=== PATIENT | female | born 1960 | race Caucasian/White ===

== ENCOUNTER 2016-10-10 09:23 | Emergency (ER) | payer BC ==
[2016-10-10] MEDS ORDERED: Sodium Chloride 0.9% 10 ML Syringe FLUSH PRN (09:41)
[2016-10-10] MEDS ORDERED: Sodium Chloride 0.9% 1,000 ML IV ONE (09:41)
--- NOTE | 2016-10-10 10:24 | CR ---
EXAMINATION: Portable chest radiograph. HISTORY: Chest eval. FINDINGS: The trachea is midline. The cardiomediastinal silhouette is within normal limits. No pulmonary infil trates, effusions or pneumothorax. Osseous structures appear unremarkable. IMPRESSION: No acute cardiopulmonary process.
[2016-10-10 10:30] LABS: CHLORIDE,CL 108 mmol/L (98-110); SODIUM,NA 139 mmol/L (136-146)
[2016-10-10] MEDS ORDERED: Ibuprofen 800 MG Tab PO ONE (11:17)
--- NOTE | 2016-10-10 12:07 | CT ---
EXAMINATION: Non contrast CT head. Coronal and sagittal reformats. HISTORY: cardio eval FINDINGS: No evidence of intra or extra axial hemorrhage, mass, midline shift, hydrocephalus or edema. No hypoattenuation changes in the major vascular territories to suggest acute infarct. No abnormal intracranial calcifications are detected. No evidence of substantial vascular calcifica tions. Paranasal sinuses and mastoid air cells are well aerated without substantial findings. The orbits a nd globes are symmetric. There is prominent rightward deviation of the nasal septum. Marcela bullosa are noted. Pituitary fossa appears unremarkable. Calvarium is intact. No evidence of skull fracture. IMPRESSION: No acute intracranial findings.
--- NOTE | 2016-10-10 12:17 | CR ---
EXAMINATION: Lumbar spine HISTORY: Fall COMPARISON: None TECHNIQUE: AP and lateral views FINDINGS: There is a trace anterolisthesis of L4 on L5. The vertebral body heights appear well maint ained. No fracture or dislocation. Minimal marginal osteophytes are noted. Facet hypertrophy is note d within the lower lumbar spine. The SI joints are symmetric. Bone mineralization is normal. Essure devices are noted. IMPRESSION: Mild degenerative changes without acute findings.
[2016-10-10] MEDS ORDERED: Meclizine 25 MG Tab PO ONE (12:32)
--- NOTE | 2016-10-10 13:27 | EDM.PDOC ---
ED HPI NEURO - General Chief Complaint: Neurological Problem Stated Complaint: SICK Time Seen by Provider: 10/10/16 09:47 Source of Information: Reports: Patient History Limitations: Reports: No limitations - History of Present Illness INITIAL COMMENTS - FREE TEXT/NARRATIVE: HISTORY AND PHYSICAL: History of present illness: [56-year-old female with no history of vertigo now complaining of dizziness with room spinning. Patient awoke this morning with the symptoms. It's worse with head movement. She has nausea associated with it. No headache or stiff neck. No fevers chills sweats or shaking chills. Patient does not feel lightheaded or presyncopal. She has no history of arrhythmia or cardiac problems. The gums are improved the patient states still] Review of systems: As per history of present illness and below otherwise all systems reviewed and negative. Past medical history: As per history of present illness and as reviewed below otherwise noncontributory. Surgical history: As per history of present illness and as reviewed below otherwise noncontributory. Social history: No reported history of drug or alcohol abuse. Family history: As per history of present illness and as reviewed below otherwise noncontributory. Physical exam: Well-appearing patient is making an effort to keep her head still because moving precipitates dizziness and room spinning. Alert no acute distress communicative and appropriate nonfocal neurologically HEENT: Atraumatic, normocephalic, pupils reactive, negative for conjunctival pallor or scleral icterus, mucous membranes moist, throat clear, neck supple, nontender, trachea midline. Lungs: Clear to auscultation, breath sounds equal bilaterally, chest nontender. Heart: S1S2, regular, negative for clicks, rubs, or JVD. Abdomen: Soft, nondistended, nontender. Negative for masses or hepatosplenomegaly. Negative for costovertebral tenderness. Pelvis: Stable nontender. Genitourinary: Deferred. Rectal: Deferred. Extremities: Atraumatic, negative for cords or calf pain. Neurovascular unremarkable. Neuro: Awake, alert, oriented. Cranial nerves II through XII unremarkable. Cerebellum unremarkable. Motor and sensory unremarkable throughout. Exam nonfocal. Diagnostics: [] Therapeutics: [] Impression: [] Plan: [Signs and symptoms consistent with peripheral vertigo. Extensive workup unremarkable. Patient improved after treatment. No further workup or treatment indicated at this time. Patient agrees with outpatient followup. Rx meclizine. Strict return precautions given] Definitive disposition and diagnosis as appropriate pending reevaluation and review of above. - Related Data Allergies/ADRs: Allergies Allergy/AdvReac Type Severity Reaction Status Date / Time Penicillins Allergy Hives Verified 10/10/16 09:34 Home Meds: Home Meds Atenolol [Tenormin] 25 mg PO BRK 03/10/14 [History] Escitalopram Oxalate 20 mg PO DAILY 03/10/14 [History] ZOLMitriptan [Zolmitriptan] 1 tab SL ASDIRECTED PRN 03/10/14 [History] Meclizine [Antivert] 25 mg PO Q6H PRN #24 tablet 10/10/16 [Rx] Past Medical History Other Cardiovascular History: blod clots Respiratory History: Reports: PE Other Genitourinary History: kidney infections Psychiatric History: Reports: Anxiety, Depression - Infectious Disease History Infectious Disease History: Reports: Chicken pox, Measles, Mumps Social & Family History - Family History Family Medical History: Noncontributory - Tobacco Use Smoking Status *Q: Never Smoker - Caffeine Use Caffeine Use: Reports: None - Alcohol Use Days Per Week of Alcohol Use: 0 Number of Drinks Per Day: 1 Total Drinks Per Week: 0 - Recreational Drug Use Recreational Drug Use: No Drug Use in Last 12 Months: No ED ROS GENERAL - Review of Systems Review Of Systems: See Below (History of present illness) ED EXAM, NEURO - Physical Exam Exam: See Below (History of present illness) Course - Vital Signs Last Recorded V/S: Last Vital Signs Temp 36.4 C 10/10/16 09:31 Pulse 55 L 10/10/16 13:42 Resp 18 10/10/16 13:42 BP 134/74 10/10/16 13:42 Pulse Ox 95 10/10/16 13:42 - Orders/Labs/Meds Labs: Laboratory Tests 10/10/16 10/10/16 10/10/16 Range/Units 09:59 09:59 09:59 WBC 5.87 (4.0-11.0) K/uL RBC 4.73 (4.30-5.90) M/uL Hgb 14.7 (12.0-16.0) g/dL Hct 44.0 (36.0-46.0) % MCV 93.0 (80.0-98.0) fL MCH 31.1 (27.0-32.0) pg MCHC 33.4 (31.0-37.0) g/dL RDW Std Deviation 45.2 (28.0-62.0) fl RDW Coeff of Karen 13 (11.0-15.0) % Plt Count 220 (150-400) K/uL MPV 9.40 (7.40-12.00) fL Neut % (Auto) 49.5 (48.0-80.0) % Lymph % (Auto) 40.5 H (16.0-40.0) % Pershing % (Auto) 7.5 (0.0-15.0) % Eos % (Auto) 2.0 (0.0-7.0) % Baso % (Auto) 0.5 (0.0-1.5) % Neut # (Auto) 2.9 (1.4-5.7) K/uL Lymph # (Auto) 2.4 (0.6-2.4) K/uL Pershing # (Auto) 0.4 (0.0-0.8) K/uL Eos # (Auto) 0.1 (0.0-0.7) K/uL Baso # (Auto) 0.0 (0.0-0.1) K/uL Nucleated RBC % 0.0 /100WBC Nucleated RBCs # 0 K/uL Sodium 139 (136-146) mmol/L Potassium 4.4 (3.5-5.1) mmol/L Chloride 108 (98-110) mmol/L Carbon Dioxide 18 L (21-31) mmol/L BUN 16 (6.0-23.0) mg/dL Creatinine 0.8 (0.6-1.5) mg/dL Est Cr Clr Drug Dosing 69.42 mL/min Estimated GFR (MDRD) > 60.0 ml/min Glucose 119 H (60-110) mg/dL Calcium 9.1 (8.8-10.8) mg/dL Total Bilirubin 0.5 (0.1-1.5) mg/dL AST 27 (5-40) IU/L ALT 25 (8-54) IU/L Alkaline Phosphatase 43 (40-150) Troponin I < 0.10 (0.0-0.29) NG/ML Total Protein 7.0 (6.0-8.0) g/dL Albumin 3.8 (3.5-5.0) g/dL Globulin 3.2 (2.0-3.5) g/dL Albumin/Globulin Ratio 1.2 L (1.3-2.8) Free T4 0.75 (0.7-1.48) ng/dL TSH 3rd Generation 0.60 (0.47-5.0) uIU/mL Urine Color Urine Appearance Urine pH (5.0-8.0) Ur Specific [place] (1.001-1.035) Urine Protein (NEGATIVE) mg/dL Urine Glucose (UA) (NEGATIVE) mg/dL Urine Ketones (NEGATIVE) mg/dL Urine Occult Blood (NEGATIVE) Urine Nitrite (NEGATIVE) Urine Bilirubin (NEGATIVE) Urine Urobilinogen (<2.0) EU/dL Ur Leukocyte Esterase (NEGATIVE) Urine RBC (0-2/HPF) Urine WBC (0-5/HPF) Ur Epithelial Cells (NONE-FEW) Amorphous Sediment (NEGATIVE) Urine Bacteria (NEGATIVE) Urine Mucus (NONE-MOD) 10/10/16 Range/Units 11:50 WBC (4.0-11.0) K/uL RBC (4.30-5.90) M/uL Hgb (12.0-16.0) g/dL Hct (36.0-46.0) % MCV (80.0-98.0) fL MCH (27.0-32.0) pg MCHC (31.0-37.0) g/dL RDW Std Deviation (28.0-62.0) fl RDW Coeff of Karen (11.0-15.0) % Plt Count (150-400) K/uL MPV (7.40-12.00) fL Neut % (Auto) (48.0-80.0) % Lymph % (Auto) (16.0-40.0) % Pershing % (Auto) (0.0-15.0) % Eos % (Auto) (0.0-7.0) % Baso % (Auto) (0.0-1.5) % Neut # (Auto) (1.4-5.7) K/uL Lymph # (Auto) (0.6-2.4) K/uL Pershing # (Auto) (0.0-0.8) K/uL Eos # (Auto) (0.0-0.7) K/uL Baso # (Auto) (0.0-0.1) K/uL Nucleated RBC % /100WBC Nucleated RBCs # K/uL Sodium (136-146) mmol/L Potassium (3.5-5.1) mmol/L Chloride (98-110) mmol/L Carbon Dioxide (21-31) mmol/L BUN (6.0-23.0) mg/dL Creatinine (0.6-1.5) mg/dL Est Cr Clr Drug Dosing mL/min Estimated GFR (MDRD) ml/min Glucose (60-110) mg/dL Calcium (8.8-10.8) mg/dL Total Bilirubin (0.1-1.5) mg/dL AST (5-40) IU/L ALT (8-54) IU/L Alkaline Phosphatase (40-150) Troponin I (0.0-0.29) NG/ML Total Protein (6.0-8.0) g/dL Albumin (3.5-5.0) g/dL Globulin (2.0-3.5) g/dL Albumin/Globulin Ratio (1.3-2.8) Free T4 (0.7-1.48) ng/dL TSH 3rd Generation (0.47-5.0) uIU/mL Urine Color YELLOW Urine Appearance CLEAR Urine pH 7.0 (5.0-8.0) Ur Specific [place] 1.010 (1.001-1.035) Urine Protein NEGATIVE (NEGATIVE) mg/dL Urine Glucose (UA) NEGATIVE (NEGATIVE) mg/dL Urine Ketones NEGATIVE (NEGATIVE) mg/dL Urine Occult Blood TRACE-LYSED (NEGATIVE) Urine Nitrite NEGATIVE (NEGATIVE) Urine Bilirubin NEGATIVE (NEGATIVE) Urine Urobilinogen 0.2 (<2.0) EU/dL Ur Leukocyte Esterase NEGATIVE (NEGATIVE) Urine RBC 0-1 (0-2/HPF) Urine WBC 0-2 (0-5/HPF) Ur Epithelial Cells RARE (NONE-FEW) Amorphous Sediment NOT SEEN (NEGATIVE) Urine Bacteria NOT SEEN (NEGATIVE) Urine Mucus NOT SEEN (NONE-MOD) Meds: Medications Discontinued Medications Generic Name Dose Route Start Last Admin Trade Name Freq PRN Reason Stop Dose Admin Sodium Chloride 1,000 mls @ 999 mls/hr 10/10/16 09:41 10/10/16 10:06 Normal Saline IV 10/10/16 10:41 999 mls/hr .Bolus ONE Administration Ibuprofen 800 mg 10/10/16 11:17 10/10/16 11:27 Motrin PO 10/10/16 11:18 800 mg ONETIME ONE Administration Meclizine HCl 25 mg 10/10/16 12:32 10/10/16 12:37 Antivert PO 10/10/16 12:33 25 mg ONETIME ONE Administration Sodium Chloride 10 ml 10/10/16 09:41 10/10/16 10:06 Saline Flush FLUSH 10 ml ASDIRECTED PRN Administration Keep Vein Open Departure - Departure Time of Disposition: 13:24 Disposition: Home, Self-Care 01 Condition: good Clinical Impression: Vertigo, Dizziness Prescriptions: Meclizine [Antivert] 25 mg PO Q6H PRN #24 tablet PRN Reason: Dizziness Instructions: Vertigo, [id number], Dizziness, [id number] Referrals: PCP,None [Primary Care Provider] - Forms: ED Department Discharge Additional Instructions: Your history and findings today are consistent with the diagnosis of vertigo we did an extensive workup to rule out any contributory findings which could make her dizziness worse. Your entire workup was unremarkable including labs, EKG, CT of the head. Rest drink plenty of fluids and use meclizine as prescribed as needed for dizziness. Ambulate with great care and assistance if necessary to optimize your personal safety. Avoid driving or putting herself in any position where dizziness would create a danger for you. Followup with your tomorrow for reevaluation further workup and treatment as needed. Return immediately for new severe or worsening symptoms
[2016-10-10 13:44] VITALS: BP 134/74
== END 2016-10-10 13:42 | disposition home or self-care (01) ==
LOC: MW.ED 09:23
DX: R42 Dizziness and giddiness (principal); F41.9 Anxiety disorder, unspecified; F32.9 Major depressive disorder, single episode, unspecified; Z79.899 Other long term (current) drug therapy; Z86.711 Personal history of pulmonary embolism; Z88.0 Allergy status to penicillin
CPT/HCPCS: 36415; 70450; 71010; 72100; 80053; 81001; 84439; 84443; 84484; 85025; 93005; 96360; 99285; A9270; J7040; 99283

== ENCOUNTER 2017-09-04 20:05 | Observation (INO) | payer BC ==
[2017-09-04] MEDS ORDERED: Aspirin 81 MG Tab.Chew PO ONE (20:10)
[2017-09-04] MEDS ORDERED: Nitroglycerin 0.4 MG Tab.SL SL PRN (20:17)
--- NOTE | 2017-09-04 20:21 | EDM.PDOC ---
<David Wyman - Last Filed: 09/04/17 21:19> ED HPI GENERAL MEDICAL PROBLEM - General Chief Complaint: General Stated Complaint: CHEST TIGHTNESS Time Seen by Provider: 09/04/17 20:19 - History of Present Illness INITIAL COMMENTS - FREE TEXT/NARRATIVE: Impression #1 viral syndrome #2 chest pain - Related Data Allergies Allergy/AdvReac Type Severity Reaction Status Date / Time Penicillins Allergy Hives Verified 09/04/17 20:12 Home Meds: Home Meds Aspirin 81 mg PO DAILY 09/04/17 [History] Atenolol 25 mg PO 09/04/17 [History] Escitalopram [Lexapro] 10 mg PO DAILY 09/04/17 [History] Course - Vital Signs Last Recorded V/S: Last Vital Signs Temp 96.0 F 09/04/17 20:14 Pulse 92 09/04/17 21:03 Resp 12 09/04/17 21:03 BP 123/70 09/04/17 21:03 Pulse Ox 96 09/04/17 21:03 - Orders/Labs/Meds Orders: Active Orders 24 hr Category Date Time Status Patient Status [ADT] Stat ADT 09/04/17 21:18 Active EKG Documentation Completion [RC] STAT Care 09/04/17 20:10 Active Chest 1V Frontal [CR] Stat Exams 09/04/17 20:10 Taken COMPREHENSIVE METABOLIC PN,CMP [CHEM] Stat Lab 09/04/17 20:21 Received INFLUENZA A+B AG SCREEN [RM] Stat Lab 09/04/17 20:34 Ordered TROPONIN I [CHEM] Stat Lab 09/04/17 20:21 Received Nitroglycerin [Nitrostat] Med 09/04/17 20:17 Active 0.4 mg SL Q5M PRN Medication Orders Nitroglycerin (Nitrostat) 0.4 mg SL Q5M PRN PRN Reason: Chest Pain Last Admin: 09/04/17 20:31 Dose: 0.4 mg Labs: Laboratory Tests 09/04/17 Range/Units 20:21 WBC 9.41 (4.0-11.0) K/uL RBC 4.87 (4.30-5.90) M/uL Hgb 15.4 (12.0-16.0) g/dL Hct 45.3 (36.0-46.0) % MCV 93.0 (80.0-98.0) fL MCH 31.6 (27.0-32.0) pg MCHC 34.0 (31.0-37.0) g/dL RDW Std Deviation 45.6 (28.0-62.0) fl RDW Coeff of Karen 13 (11.0-15.0) % Plt Count 240 (150-400) K/uL MPV 9.20 (7.40-12.00) fL Neut % (Auto) 68.2 (48.0-80.0) % Lymph % (Auto) 21.4 (16.0-40.0) % Cowley % (Auto) 8.3 (0.0-15.0) % Eos % (Auto) 1.9 (0.0-7.0) % Baso % (Auto) 0.2 (0.0-1.5) % Neut # (Auto) 6.4 H (1.4-5.7) K/uL Lymph # (Auto) 2.0 (0.6-2.4) K/uL Cowley # (Auto) 0.8 (0.0-0.8) K/uL Eos # (Auto) 0.2 (0.0-0.7) K/uL Baso # (Auto) 0.0 (0.0-0.1) K/uL Nucleated RBC % 0.0 /100WBC Nucleated RBCs # 0 K/uL Meds: Medications Generic Name Dose Route Start Last Admin Trade Name Freq PRN Reason Stop Dose Admin Nitroglycerin 0.4 mg 09/04/17 20:17 09/04/17 20:31 Nitrostat SL 0.4 mg Q5M PRN Administration Chest Pain Discontinued Medications Generic Name Dose Route Start Last Admin Trade Name Freq PRN Reason Stop Dose Admin Aspirin 324 mg 09/04/17 20:10 09/04/17 20:29 Aspirin PO 09/04/17 20:11 324 mg ONETIME ONE Administration Departure - Departure Disposition: Refer to Observation Clinical Impression: Chest pain, rule out acute myocardial infarction - Discharge Information Referrals: Sho Esteban MD [Primary Care Provider] - Forms: ED Department Discharge - My Orders Last 24 Hours: My Active Orders 09/04/17 20:10 EKG Documentation Completion [RC] STAT Chest 1V Frontal [CR] Stat 09/04/17 20:17 Nitroglycerin [Nitrostat] 0.4 mg SL Q5M PRN 09/04/17 20:21 COMPREHENSIVE METABOLIC PN,CMP [CHEM] Stat TROPONIN I [CHEM] Stat 09/04/17 20:34 INFLUENZA A+B AG SCREEN [RM] Stat - Assessment/Plan Last 24 Hours: My Active Orders 09/04/17 20:10 EKG Documentation Completion [RC] STAT Chest 1V Frontal [CR] Stat 09/04/17 20:17 Nitroglycerin [Nitrostat] 0.4 mg SL Q5M PRN 09/04/17 20:21 COMPREHENSIVE METABOLIC PN,CMP [CHEM] Stat TROPONIN I [CHEM] Stat 09/04/17 20:34 INFLUENZA A+B AG SCREEN [RM] Stat <Taina Umana E - Last Filed: 09/04/17 21:22> ED HPI GENERAL MEDICAL PROBLEM - General Source of Information: Reports: Patient History Limitations: Reports: No Limitations - History of Present Illness INITIAL COMMENTS - FREE TEXT/NARRATIVE: HISTORY AND PHYSICAL: History of present illness: Patient is a 57-year-old female who presents to the emergency room with complaints of chest heaviness. She states over the past several days she has had cough and cold like symptoms. Last night she started to have this "heaviness " in the left upper/mid sternal chest area. This pain does not radiate anywhere. Nothing makes it better or worse. She has no personal history of heart disease. No history of smoking. She denies any fever, chills, shortness of breath. She denies any abdominal pain, nausea, vomiting or diarrhea/ constipation. She is concerned she may have the flu, "that's what it feels like ". Review of systems: As per history of present illness and below otherwise all systems reviewed and negative. Past medical history: As per history of present illness and as reviewed below otherwise noncontributory. Surgical history: As per history of present illness and as reviewed below otherwise noncontributory. Social history: No reported history of drug or alcohol abuse. Family history: As per history of present illness and as reviewed below otherwise noncontributory. Physical exam: General: HEENT: Atraumatic, normocephalic, pupils equal and reactive bilaterally, negative for conjunctival pallor or scleral icterus, mucous membranes moist, throat clear, neck supple, nontender, trachea midline. No drooling or trismus noted. No meningeal signs Lungs: Clear to auscultation, breath sounds equal bilaterally, mild tenderness with chest palpation (reproducable). Heart: S1S2, regular rate and rhythm without overt murmur Abdomen: Soft, nondistended, nontender. Negative for masses or hepatosplenomegaly. Negative for costovertebral tenderness. Pelvis: Stable nontender. Genitourinary: Deferred. Rectal: Deferred. Skin: Intact, warm, dry. No lesions or rashes noted. Extremities: Atraumatic, negative for cords or calf pain. Neurovascular unremarkable. Neuro: Awake, alert, oriented. Cranial nerves II through XII unremarkable. Cerebellum unremarkable. Motor and sensory unremarkable throughout. Exam nonfocal. Notes: Dr Plascencia involved in care of patient. Patient was chest pain free after one nitro spray. Labs, xray, EKG unremarkable. VSS. Patient is agreeable for admission. Observation telemetry. Diagnostics: CBC, CMP, troponin, EKG, chest x-ray Therapeutics: Aspirin, nitroglycerin Impression: Chest Pain r/o MD Patient to be admitted per Dr Bautista Definitive disposition and diagnosis as appropriate pending reevaluation and review of above. Duration: Day(s): Location: Reports: Chest chest Pain Score (Numeric/FACES): 6 Past Medical History Other Cardiovascular History: blod clots Respiratory History: Reports: PE Other Genitourinary History: kidney infections Psychiatric History: Reports: Anxiety, Depression - Infectious Disease History Infectious Disease History: Reports: Chicken Pox, Measles, Mumps Social & Family History - Family History Family Medical History: Noncontributory - Tobacco Use Smoking Status *Q: Never Smoker - Caffeine Use Caffeine Use: Reports: None - Alcohol Use Days Per Week of Alcohol Use: 0 Number of Drinks Per Day: 1 Total Drinks Per Week: 0 - Recreational Drug Use Recreational Drug Use: No Drug Use in Last 12 Months: No ED ROS GENERAL - Review of Systems Review Of Systems: ROS reveals no pertinent complaints other than HPI. ED EXAM, GENERAL - Physical Exam Exam: See Below (See dictation) Course - Orders/Labs/Meds Labs: Laboratory Tests 09/04/17 Range/Units 20:21 WBC 9.41 (4.0-11.0) K/uL RBC 4.87 (4.30-5.90) M/uL Hgb 15.4 (12.0-16.0) g/dL Hct 45.3 (36.0-46.0) % MCV 93.0 (80.0-98.0) fL MCH 31.6 (27.0-32.0) pg MCHC 34.0 (31.0-37.0) g/dL RDW Std Deviation 45.6 (28.0-62.0) fl RDW Coeff of Karen 13 (11.0-15.0) % Plt Count 240 (150-400) K/uL MPV 9.20 (7.40-12.00) fL Neut % (Auto) 68.2 (48.0-80.0) % Lymph % (Auto) 21.4 (16.0-40.0) % Cowley % (Auto) 8.3 (0.0-15.0) % Eos % (Auto) 1.9 (0.0-7.0) % Baso % (Auto) 0.2 (0.0-1.5) % Neut # (Auto) 6.4 H (1.4-5.7) K/uL Lymph # (Auto) 2.0 (0.6-2.4) K/uL [place] # (Auto) 0.8 (0.0-0.8) K/uL Eos # (Auto) 0.2 (0.0-0.7) K/uL Baso # (Auto) 0.0 (0.0-0.1) K/uL Nucleated RBC % 0.0 /100WBC Nucleated RBCs # 0 K/uL Departure - Departure Time of Disposition: 21:15
[2017-09-04] MEDS ORDERED: Nitroglycerin 2% Oint 1 GM UD Packet ONE (21:22)
[2017-09-04 21:23] LABS: CHLORIDE,CL 102 mmol/L (98-107); SODIUM,NA 139 mmol/L (136-145)
[2017-09-04] MEDS ORDERED: Nitroglycerin 2% Oint 1 GM UD Packet TOP ONE (21:23)
[2017-09-04] MEDS ORDERED: Morphine 4 MG/ML Syringe IVPUSH PRN (23:25)
[2017-09-05] MEDS: Acetaminophen 325 MG Tab PO PRN ×2 (00:37→09:57)
[2017-09-05] MEDS ORDERED: Escitalopram 10 MG Tab PO ONE (01:06)
[2017-09-05] MEDS ORDERED: Atenolol 25 MG Tab PO ONE (01:11)
[2017-09-05] MEDS ORDERED: Escitalopram 10 MG Tab PO SCH ×3 (01:15→21:00)
[2017-09-05] MEDS ORDERED: Benzonatate 100 MG Cap PO PRN (02:29)
[2017-09-05] MEDS ORDERED: Ondansetron 4 MG/2 ML SDV IVPUSH PRN (08:18)
[2017-09-05] MEDS ORDERED: Codeine/guaiFENesin 100-10 MG/5 ML Syrup 5 ML Cup PO PRN (09:00)
[2017-09-05] MEDS ORDERED: Aspirin 81 MG Tab.Chew PO SCH ×2 (09:00→21:00)
--- NOTE | 2017-09-05 09:47 | CR ---
EXAM DATE: 09/04/17 PATIENT'S AGE: 57 Patient: JIA JARAMILLO Facility: [place], [place] Site . Site : [id number] Study: XRay Chest [id number]/28/2018 8:40:36 PM Ordering Physician: Doctor Lima Final Report: INDICATION: Chest pain TECHNIQUE: Chest 1 view COMPARISON: October 10, 2016 FINDINGS: Cardiovascular and mediastinum: Heart size and vasculature are normal in caliber and appearance. Mediastinum is within normal limits. Lungs and pleural space: No focal consolidation. No sign of pleural effusion. No pneumothorax. Bones and soft tissues: No significant findings. IMPRESSION: No acute cardiopulmonary disease. Dictated by Adelso Harrison MD @ 09/04/2017 8:46:43 PM Dictated by: Adelso Harrison MD @ 09/04/2017 20:48:20 (Electronic Signature) Report Signed by Proxy. [email or web address]
--- NOTE | 2017-09-05 09:50 | PCM.HP ---
Addendum entered and electronically signed by Jorden Bautista MD 09/19/17 20:04 : I performed a history and physical examination of the patient and discussed patient's management with the resident. I reviewed the resident's note and agree with the documentation findings and plan of care below. Attending: Jorden Bautista MD Addendum entered and electronically signed by Kaitlin Moon NP 09/05/17 14:04 : E- prescribe failed for David ribeiro. Prescription called to [facility] at 1400 09/05/17 by myself. Original Note: H&P History of Present Illness - General Date of Service: 09/05/17 Admit Problem/Dx: Admission Diagnosis/Problem Admission Diagnosis/Problem Chest pain Source of Information: Patient History Limitations: Reports: No Limitations - History of Present Illness Initial Comments - Free Text/Narative: This 57 year old female with pmh of mitral valve prolapse and PE's from control at age 42, presented to the ED with complaints of L chest heaviness. She reports she recently returned from [place] from vacation. Her started having a cough and cold and a couple days later she developed the same symptoms. She reports this chest pain started last evening after coughing. Some shortness of breath noted, non productive cough. Some fevers and chills intermittently, but she did not measure her temp. Some sinus congestion, sore throat and ear pain. The chest pain did not radiate, she had no palpitations. In the ED labwork all WNL, Strep negative, influenza negative and CXR negative. EKG was SR with ischemic changes. Troponin negative. She was admitted observation for atypical chest pain. PCP, Dr Mendoza Throat Pain Score (Numeric/FACES): 6 chest Pain Score (Numeric/FACES): 0 - Related Data Allergies/Adverse Reactions: Allergies Allergy/AdvReac Type Severity Reaction Status Date / Time Penicillins Allergy Mild Hives Verified 09/04/17 23:37 Home Medications: Home Meds Aspirin 81 mg PO BEDTIME 09/04/17 [History] Atenolol 25 mg PO BEDTIME 09/04/17 [History] Escitalopram [Lexapro] 10 mg PO BEDTIME 09/04/17 [History] Temazepam 30 mg PO PRN 09/04/17 [History] ZOLMitriptan [Zolmitriptan] 5 mg PO PRN 09/04/17 [History] Acetaminophen [Tylenol] 650 mg PO Q4H PRN tablet 09/05/17 [Rx] Benzonatate [Tessalon Perle] 100 mg PO TID PRN #20 capsule 09/05/17 [Rx] Codeine/guaiFENesin [Robitussin AC] 5 ml PO Q6H PRN #1 bottle 09/05/17 [Rx] Naproxen [Naprosyn] 250 mg PO Q12HR PRN tablet 09/05/17 [Rx] Past Medical History HEENT History: Reports: None Cardiovascular History: Reports: Blood Clots/VTE/DVT, Other (See Below). Denies : CAD, High Cholesterol, Hypertension, [place], Stents Other Cardiovascular History: Mitral valve prolpase Respiratory History: Reports: PE (secondary to control) Gastrointestinal History: Reports: GERD (Tums intermittently). 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 Denies: Diabetes, Type II Hematologic History: Reports: None - Infectious Disease History Infectious Disease History: Reports: Chicken Pox - Past Surgical History HEENT Surgical History: Reports: Adenoidectomy, Tonsillectomy GI Surgical History: Reports: Cholecystectomy Female Surgical History: Reports: D&C Social & Family History - Family History Family Medical History: Noncontributory Cardiac: Reports: [place], Other (See Below) Other Cardiac Family History: Father had [place] - Tobacco Use Smoking Status *Q: Never Smoker Second Hand Smoke Exposure: No - Caffeine Use Caffeine Use: Reports: Coffee - Alcohol Use Days Per Week of Alcohol Use: 2 Number of Drinks Per Day: 1 Total Drinks Per Week: 2 Alcohol Use Frequency: Socially - Recreational Drug Use Recreational Drug Use: No Drug Use in Last 12 Months: No - Living Situation & Occupation Living situation: Reports: Occupation: Employed H&P Review of Systems - Review of Systems: Review Of Systems: See Below General: Reports: Fever, Chills, Malaise, Fatigue, Decreased Appetite. Denies: Weakness HEENT: Reports: Headaches, Post Nasal Drip, Sinus Congestion, Sore Throat Pulmonary: Reports: Pleuritic Chest Pain, Cough. Denies: Shortness of Breath, Wheezing, Sputum Cardiovascular: Reports: Chest Pain. Denies: Edema, Lightheadedness, Syncope Gastrointestinal: Reports: No Symptoms. Denies: Abdominal Pain, Black Stool, Bloody Stool, Constipation, Nausea, Vomiting Genitourinary: Reports: No Symptoms. Denies: Dysuria, Frequency, Burning Musculoskeletal: Reports: No Symptoms. Denies: Neck Pain Psychiatric: Reports: No Symptoms. Denies: Confusion Neurological: Reports: No Symptoms Hematologic/Lymphatic: Reports: No Symptoms Immunologic: Reports: No Symptoms Exam - Exam Exam: See Below - Vital Signs Vital Signs: Last Vital Signs Temp 97.0 F 09/05/17 08:18 Pulse 74 09/05/17 08:18 Resp 18 09/05/17 08:18 BP 113/63 09/05/17 08:18 Pulse Ox 94 L 09/05/17 08:18 Weight: 100.698 kg - Exam Quality Assessment: DVT Prophylaxis. No: Supplemental Oxygen General: Alert, Oriented, Cooperative HEENT: Conjunctiva Clear, EACs Clear, EOMI, Hearing Intact, Mucosa Moist & [place] , Nares Patent, TMs Clear, PERRLA. No: Posterior Pharynx Clear (slight erythema noted.) Neck: Supple, Trachea Midline, 2 Lungs: Clear to Auscultation, Normal Respiratory Effort Cardiovascular: Regular Rate, Regular Rhythm GI/Abdominal Exam: Normal Bowel Sounds, Soft, Non-Tender, No Organomegaly, No Distention, No Abnormal Bruit, No Mass, Pelvis Stable Back Exam: Normal Inspection, Full Range of Motion, NT Extremities: Normal Inspection, Normal Range of Motion, Non-Tender, No Pedal Edema, Normal Capillary Refill Neuro Extensive - Mental Status: Alert, Oriented x3 Neuro Extensive - Motor, Sensory, Reflexes: CN II-XII Intact Psychiatric: Alert, Normal Affect, Normal Mood - Patient Data Lab Results Last 24 hrs: Laboratory Results - last 24 hr 09/04/17 09/04/17 09/05/17 Range/Units 20:21 20:21 02:25 WBC 9.41 (4.0-11.0) K/uL RBC 4.87 (4.30-5.90) M/uL Hgb 15.4 (12.0-16.0) g/dL Hct 45.3 (36.0-46.0) % MCV 93.0 (80.0-98.0) fL MCH 31.6 (27.0-32.0) pg MCHC 34.0 (31.0-37.0) g/dL RDW Std Deviation 45.6 (28.0-62.0) fl RDW Coeff of Karen 13 (11.0-15.0) % Plt Count 240 (150-400) K/uL MPV 9.20 (7.40-12.00) fL Neut % (Auto) 68.2 (48.0-80.0) % Lymph % (Auto) 21.4 (16.0-40.0) % [place] % (Auto) 8.3 (0.0-15.0) % Eos % (Auto) 1.9 (0.0-7.0) % Baso % (Auto) 0.2 (0.0-1.5) % Neut # (Auto) 6.4 H (1.4-5.7) K/uL Lymph # (Auto) 2.0 (0.6-2.4) K/uL [place] # (Auto) 0.8 (0.0-0.8) K/uL Eos # (Auto) 0.2 (0.0-0.7) K/uL Baso # (Auto) 0.0 (0.0-0.1) K/uL Nucleated RBC % 0.0 /100WBC Nucleated RBCs # 0 K/uL Sodium 139 (136-145) mmol/L Potassium 3.8 (3.5-5.1) mmol/L Chloride 102 (98-107) mmol/L Carbon Dioxide 27.1 (21.0-32.0) mmol/L BUN 16 (7.0-18.0) mg/dL Creatinine 1.0 (0.6-1.0) mg/dL Est Cr Clr Drug Dosing 54.89 mL/min Estimated GFR (MDRD) 57.6 ml/min Glucose 131 H (74-106) mg/dL Calcium 8.8 (8.5-10.1) mg/dL Total Bilirubin 0.3 (0.2-1.0) mg/dL AST 35 (15-37) IU/L ALT 51 (14-63) IU/L Alkaline Phosphatase 75 (46-116) U/L Troponin I < 0.050 < 0.050 (0.000-0.056) ng/mL Total Protein 7.5 (6.4-8.2) g/dL Albumin 3.6 (3.4-5.0) g/dL Globulin 3.9 H (2.0-3.5) g/dL Albumin/Globulin Ratio 0.9 L (1.3-2.8) 09/05/17 Range/Units 08:40 WBC (4.0-11.0) K/uL RBC (4.30-5.90) M/uL Hgb (12.0-16.0) g/dL Hct (36.0-46.0) % MCV (80.0-98.0) fL MCH (27.0-32.0) pg MCHC (31.0-37.0) g/dL RDW Std Deviation (28.0-62.0) fl RDW Coeff of Karen (11.0-15.0) % Plt Count (150-400) K/uL MPV (7.40-12.00) fL Neut % (Auto) (48.0-80.0) % Lymph % (Auto) (16.0-40.0) % [place] % (Auto) (0.0-15.0) % Eos % (Auto) (0.0-7.0) % Baso % (Auto) (0.0-1.5) % Neut # (Auto) (1.4-5.7) K/uL Lymph # (Auto) (0.6-2.4) K/uL [place] # (Auto) (0.0-0.8) K/uL Eos # (Auto) (0.0-0.7) K/uL Baso # (Auto) (0.0-0.1) K/uL Nucleated RBC % /100WBC Nucleated RBCs # K/uL Sodium (136-145) mmol/L Potassium (3.5-5.1) mmol/L Chloride (98-107) mmol/L Carbon Dioxide (21.0-32.0) mmol/L BUN (7.0-18.0) mg/dL Creatinine (0.6-1.0) mg/dL Est Cr Clr Drug Dosing mL/min Estimated GFR (MDRD) ml/min Glucose (74-106) mg/dL Calcium (8.5-10.1) mg/dL Total Bilirubin (0.2-1.0) mg/dL AST (15-37) IU/L ALT (14-63) IU/L Alkaline Phosphatase (46-116) U/L Troponin I < 0.050 (0.000-0.056) ng/mL Total Protein (6.4-8.2) g/dL Albumin (3.4-5.0) g/dL Globulin (2.0-3.5) g/dL Albumin/Globulin Ratio (1.3-2.8) Result Diagrams: 09/04/17 20:21 09/04/17 20:21 Mauricio Results Last 24 hrs: Microbiology 09/04/17 22:55 Group A Streptococcus Rapid Screen - Final Throat NEGATIVE STREP A SCREEN 09/04/17 20:34 Influenza Type A Antigen Screen - Final Nasopharyngeal Swab NEGATIVE INFLUENZA A VIRUS AG Influenza Type B Antigen Screen - Final NEGATIVE INFLUENZA B VIRUS AG *Q Meaningful Use (ADM) - VTE Risk Assess *Q Each Risk Factor Represents 1 Point: Age 41 - 59 years Total Score 1 Point Risk Factors: 1 Each Risk Factor Represents 2 Points: None Total Score 2 Point Risk Factors: 0 Each Risk Factor Represents 3 Points: History of DVT/PE Total Score 3 Point Risk Factors: 3 Each Risk Factor Represents 5 Points: None Total Score 5 Point Risk Factors: 0 Venous Thromboembolism Risk Factor Score *Q: 4 - Problem List (1) Atypical chest pain SNOMED Code(s): 291122414 ICD Code: R07.89 - OTHER CHEST PAIN Status: Acute Current Visit: Yes (2) URI (upper respiratory infection) SNOMED Code(s): 56369420 ICD Code: J06.9 - ACUTE UPPER RESPIRATORY INFECTION, UNSPECIFIED Status: Acute Current Visit: Yes Qualifiers: URI type: unspecified viral URI Qualified Code(s): J06.9 - Acute upper respiratory infection, unspecified (3) Hx of mitral valve prolapse SNOMED Code(s): 782651800 ICD Code: Z86.79 - PERSONAL HISTORY OF OTHER DISEASES OF THE CIRCULATORY SYSTEM Status: Chronic Current Visit: Yes (4) Hx of pulmonary embolus SNOMED Code(s): 988548161 ICD Code: Z86.711 - PERSONAL HISTORY OF PULMONARY EMBOLISM Status: Chronic Current Visit: Yes Problem List Initiated/Reviewed/Updated: Yes Orders Last 24hrs: Active Orders 24 hr Category Date Time Status Patient Status [ADT] Stat ADT 09/04/17 21:18 Active Intake and Output [RC] QSHIFT Care 09/05/17 08:18 Active Oxygen Therapy [RC] PRN Care 09/05/17 08:18 Active Telemetry Monitoring [Cardiac Monitoring] [RC] . Care 09/05/17 23:20 Active DIRECTED Up ad Vee [RC] ASDIRECTED Care 09/05/17 08:18 Active VTE/DVT Education [RC] PER UNIT ROUTINE Care 09/05/17 08:18 Active Vital Signs [RC] Q4H Care 09/05/17 08:18 Active Heart Healthy Diet [DIET] Diet 09/05/17 Breakfast Active CULTURE STREP A CONFIRMATION [RM] Stat Lab 09/04/17 22:55 Results INFLUENZA A+B AG SCREEN [] Stat Lab 09/04/17 20:34 Ordered STREP SCRN A RAPID W CULT CONF [RM] Stat Lab 09/04/17 22:55 Results Acetaminophen [Tylenol] Med 09/05/17 00:27 Active 650 mg PO Q4H PRN Aspirin Med 09/05/17 21:00 Active 81 mg PO BEDTIME Atenolol [Tenormin] Med 09/05/17 21:00 Active 25 mg PO BEDTIME Benzonatate [Tessalon Perles] Med 09/05/17 02:29 Active 100 mg PO QID PRN Codeine/guaiFENesin [Robitussin AC] Med 09/05/17 09:00 Active 5 ml PO Q6H PRN Escitalopram [Lexapro] Med 09/05/17 21:00 Active 10 mg PO BEDTIME Morphine Med 09/04/17 23:25 Active 2 mg IVPUSH Q6H PRN Nitroglycerin [Nitrostat] Med 09/04/17 20:17 Active 0.4 mg SL Q5M PRN Ondansetron [Zofran] Med 09/05/17 08:18 Active 4 mg IVPUSH Q4H PRN Sequential Compression Device [OM.PC] Per Unit Routine Oth 09/05/17 08:18 Ordered Resuscitation Status Routine Resus Stat 09/05/17 08:18 Ordered Medication Orders Acetaminophen (Tylenol) 650 mg PO Q4H PRN PRN Reason: Headache Last Admin: 09/05/17 00:37 Dose: 650 mg Aspirin (Aspirin) 81 mg PO BEDTIME OSKAR Atenolol (Tenormin) 25 mg PO BEDTIME OSKAR Benzonatate (Tessalon Perles) 100 mg PO QID PRN PRN Reason: Cough Last Admin: 09/05/17 03:00 Dose: 100 mg Escitalopram Oxalate (Lexapro) 10 mg PO BEDTIME OSKAR Guaifenesin/Codeine Phosphate (Robitussin Ac) 5 ml PO Q6H PRN PRN Reason: Cough Last Admin: 09/05/17 09:46 Dose: 5 ml Morphine Sulfate (Morphine) 2 mg IVPUSH Q6H PRN PRN Reason: Pain Last Admin: 09/05/17 05:45 Dose: 2 mg Nitroglycerin (Nitrostat) 0.4 mg SL Q5M PRN PRN Reason: Chest Pain Last Admin: 09/04/17 20:31 Dose: 0.4 mg Ondansetron HCl (Zofran) 4 mg IVPUSH Q4H PRN PRN Reason: Nausea Assessment/Plan Comment:: Discharge Plan: Discharge Diagnoses: Atypical chest pain URI Hx Mitral valve prolapse Hx PE secondary to control This 57 year old female admitted with atypical chest pain 1. Atypical chest pain: Troponins x 3 negative. Telemetry has remained SR with no ischemic changes. Chest pain likely secondary to URI and pleuritic type chest pain from dry almost constant coughing. She was treated with some Codeine cough syrup and Motrin once troponins returned negative. Had a stress test with Dr. Mariee 1 1/2 yrs ago, which was negative. Will discharge home today with tessalon perles, Codeine cough syrup, Tylenol and Motrin as supportive care for URI. She will return to PCP next week to ensure she is improving. She is to stay well hydrated and rest the weekend while she is healing from this illness. She is to return to the ED or clinic if concerns should arise.
[2017-09-05] MEDS ORDERED: Naproxen 500 MG Tab PO PRN (09:54)
[2017-09-05 12:07] VITALS: BP 120/79
[2017-09-05] MEDS ORDERED: Atenolol 25 MG Tab PO SCH (21:00)
== END 2017-09-05 12:35 | disposition home or self-care (01) ==
LOC: MW.ED 20:05 → MW.MS 21:18 → UNDODISOB 09-05 12:35
PROVIDERS: ADMIT Family Medicine; ATTEND Family Medicine
DX: R07.89 Other chest pain (principal); K21.9 Gastro-esophageal reflux disease without esophagitis; F41.9 Anxiety disorder, unspecified; F32.9 Major depressive disorder, single episode, unspecified; E66.9 Obesity, unspecified; J06.9 Acute upper respiratory infection, unspecified; Z86.79 Personal history of other diseases of the circulatory system; Z86.711 Personal history of pulmonary embolism; Z88.0 Allergy status to penicillin; Z79.82 Long term (current) use of aspirin; Z68.30 Body mass index [BMI] 30.0-30.9, adult; Z90.89 Acquired absence of other organs; Z79.899 Other long term (current) drug therapy
CPT/HCPCS: 36415; 71045; 80053; 84484; 85025; 87081; 87804; 87880; 96374; 99285; A9270; G0378; J2270; 99284

== ENCOUNTER 2021-10-18 17:08 | Emergency (ER) | payer BC ==
[2021-10-18] MEDS ORDERED: Sodium Chloride 0.9% 1,000 ML IV ONE (19:32)
[2021-10-18] MEDS ORDERED: Ketorolac 30 MG/ML SDV IVPUSH ONE (19:37)
[2021-10-18] MEDS ORDERED: Ondansetron 4 MG/2 ML SDV IVPUSH ONE (19:37)
[2021-10-18] MEDS ORDERED: diphenhydrAMINE 50 MG/ML SDV IVPUSH ONE (19:38)
[2021-10-18] MEDS ORDERED: Metoclopramide 10 MG/2 ML SDV IV ONE (19:38)
[2021-10-18 20:56] VITALS: BP 125/54; PULSE 57
== END 2021-10-18 20:45 | disposition home or self-care (01) ==
LOC: MW.ED 17:08
DX: J01.00 Acute maxillary sinusitis, unspecified (principal); K21.9 Gastro-esophageal reflux disease without esophagitis; E66.9 Obesity, unspecified; Z68.37 Body mass index [BMI] 37.0-37.9, adult; Z79.82 Long term (current) use of aspirin; Z88.0 Allergy status to penicillin
CPT/HCPCS: 70450; 96374; 96375; 99284; J1200; J1885; J2405; J2765; J7030; 99283

== ENCOUNTER 2022-02-18 11:48 | Emergency (ER) | payer BC ==
[2022-02-18] MEDS ORDERED: Ketorolac 30 MG/ML SDV IM ONE (13:33)
[2022-02-18] MEDS ORDERED: Acetaminophen 325 MG Tab PO ONE (13:34)
[2022-02-18] MEDS ORDERED: diphenhydrAMINE 50 MG Cap PO ONE (13:34)
[2022-02-18] MEDS ORDERED: Cetirizine 10 MG Tab PO ONE (13:34)
[2022-02-18] MEDS ORDERED: Hydrocortisone 1% Crm 30 GM Tube TOP PRN (13:35)
[2022-02-18 19:56] VITALS: BP 111/59; PULSE 64
== END 2022-02-18 15:08 | disposition home or self-care (01) ==
LOC: MW.ED 11:48
DX: L50.9 Urticaria, unspecified (principal); E66.9 Obesity, unspecified; Z88.0 Allergy status to penicillin; Z79.82 Long term (current) use of aspirin; Z79.899 Other long term (current) drug therapy; Z68.37 Body mass index [BMI] 37.0-37.9, adult
CPT/HCPCS: 96372; 99283; A9270; J1885

== ENCOUNTER 2023-02-02 07:50 | Emergency (ER) | payer BC ==
[2023-02-02 08:18] LABS: APPEARANCE,URINE SLT CLOUDY; BILIRUBIN,URINE NEGATIVE (NEGATIVE); COLOR,URINE YELLOW; GLUCOSE,URINE NEGATIVE (NEGATIVE); KETONES,URINE NEGATIVE (NEGATIVE); LEUKOCYTE ESTERASE,URINE SMALL (NEGATIVE); NITRITE,URINE NEGATIVE (NEGATIVE); OCCULT BLOOD,URINE LARGE (NEGATIVE); PH,URINE 5.5 (5.0-8.0); PROTEIN,URINE TRACE mg/dL (NEGATIVE); UROBILINOGEN,URINE 0.2 EU/dL (<2.0)
[2023-02-02 08:42] LABS: BACTERIA,URINE 1+ (NEGATIVE); RBC,URINE 70-80 (0-2/HPF); WBC,URINE 60-70 (0-5/HPF)
[2023-02-02] MEDS ORDERED: Sodium Chloride 0.9% 2.5 ML Syringe FLUSH PRN (10:13)
[2023-02-02] MEDS ORDERED: Sodium Chloride 0.9% 10 ML Syringe FLUSH PRN (10:13)
[2023-02-02] MEDS ORDERED: Sodium Chloride 0.9% 1,000 ML IV ONE (10:37)
[2023-02-02 10:38] LABS: BASOPHILS PERCENT AUTO 0.3 % (0.0-1.5); EOSINOPHILS ABSOLUTE AUTO 0.2 K/uL (0.0-0.7); EOSINOPHILS PERCENT AUTO 1.4 % (0.0-7.0); HEMATOCRIT 44.2 % (36.0-46.0); HEMOGLOBIN 14.6 g/dL (12.0-16.0); LYMPHOCYTES ABSOLUTE AUTO 2.6 K/uL (0.6-2.4); LYMPHOCYTES PERCENT AUTO 22.3 % (16.0-40.0); MEAN CORPUSCULAR HEMOGLOBIN 31.1 pg (27.0-32.0); MONOCYTES ABSOLUTE AUTO 0.9 K/uL (0.0-0.8); MONOCYTES PERCENT AUTO 8.1 % (0.0-15.0); NEUTROPHILS ABSOLUTE AUTO 7.9 K/uL (1.4-5.7); NEUTROPHILS PERCENT AUTO 67.9 % (48.0-80.0); NRBC ABSOLUTE 0 K/uL; PLATELET COUNT,PLT 234 K/uL (150-400); WHITE BLOOD CELL COUNT,WBC 11.55 K/uL (4.0-11.0)
[2023-02-02 11:02] LABS: A/G RATIO 1.1 (0.9-1.6); ALBUMIN 3.6 g/dL (3.4-5.0); BILIRUBIN TOTAL 0.4 mg/dL (0.2-1.0); CARBON DIOXIDE,CO2 27.5 mmol/L (21.0-32.0); CREATININE 0.9 mg/dL (0.6-1.0); EST CRCL DRUG DOSING (CG) 57.4 mL/min
[2023-02-02] MEDS ORDERED: Phenazopyridine 200 MG Tab PO ONE (11:03)
[2023-02-02] MEDS ORDERED: cefTRIAXone 1 GM in Sodium Chloride 0.9% 50 ML IV ONE (12:08)
[2023-02-02 13:40] VITALS: BP 136/67; PULSE 60
== END 2023-02-02 13:38 | disposition home or self-care (01) ==
LOC: MW.ED 07:50
DX: N39.0 Urinary tract infection, site not specified (principal); R19.7 Diarrhea, unspecified; K21.9 Gastro-esophageal reflux disease without esophagitis; E66.9 Obesity, unspecified; Z68.36 Body mass index [BMI] 36.0-36.9, adult; Z88.0 Allergy status to penicillin; Z79.82 Long term (current) use of aspirin; Z86.16 Personal history of COVID-19
CPT/HCPCS: 36415; 80053; 81001; 83605; 83690; 85025; 87040; 87045; 87046; 87324; 87449; 87899; 96361; 96365; 99284; A9270; J0696; J3490; J7030; 99283

== ENCOUNTER 2023-07-06 11:45 | Emergency (ER) | payer BC ==
[2023-07-06] MEDS ORDERED: Sodium Chloride 0.9% 2.5 ML Syringe FLUSH PRN (12:06)
[2023-07-06] MEDS ORDERED: Sodium Chloride 0.9% 10 ML Syringe FLUSH PRN (12:06)
[2023-07-06] MEDS ORDERED: Ondansetron 4 MG/2 ML SDV IVPUSH ONE (12:10)
[2023-07-06] MEDS ORDERED: Morphine 4 MG/ML Syringe IVPUSH ONE ×2 (12:10→14:52)
[2023-07-06 12:17] LABS: BASOPHILS ABSOLUTE AUTO 0.06 K/uL (0.00-0.20); BASOPHILS PERCENT AUTO 0.8 % (0.0-1.0); EOSINOPHILS ABSOLUTE AUTO 0.15 K/uL (0.00-0.45); HEMATOCRIT 45.2 % (37.0-47.0); HEMOGLOBIN 15.6 g/dL (12.0-16.0); IMMATURE GRAN ABSOLUTE AUTO 0.02 K/uL (0.00-0.05); IMMATURE GRAN PERCENT AUTO 0.3 % (0.0-0.4); LYMPHOCYTES ABSOLUTE AUTO 3.44 K/uL (1.00-4.80); LYMPHOCYTES PERCENT AUTO 44.8 % (24.0-44.0); MEAN CORPUSCULAR HEMOGLOBIN 31.5 pg (28.0-32.0); MEAN CORPUSCULAR HGB CONC 34.5 g/dL (32.0-36.0); MEAN CORPUSCULAR VOLUME 91.1 fL (83.0-99.0); MEAN PLATELET VOLUME 8.8 fL (9.4-12.3); MONOCYTES PERCENT AUTO 9.1 % (0.0-8.0); NEUTROPHILS ABSOLUTE AUTO 3.31 K/uL (1.80-7.70); PLATELET COUNT,PLT 261 K/uL (150-400); RED BLOOD CELL COUNT 4.96 M/uL (4.10-5.30); WHITE BLOOD CELL COUNT,WBC 7.68 K/uL (3.9-11.3)
[2023-07-06 12:29] LABS: A/G RATIO 1.1 (0.9-1.6); ALBUMIN 3.8 g/dL (3.4-5.0); BILIRUBIN TOTAL 0.6 mg/dL (0.2-1.0); CARBON DIOXIDE,CO2 24.7 mmol/L (21.0-32.0); EST CRCL DRUG DOSING (CG) 51.02 mL/min; PROTEIN TOTAL,TP 7.4 g/dL (6.4-8.2)
[2023-07-06 12:38] LABS: D-DIMER QUANTITATIVE 0.24 mg/L FEU (0.00-0.50); INR 1.06 (0.86-1.11); PTT,PARTIAL THROMBOPLSTIN TIME 24.8 SEC (23.9-30.7)
[2023-07-06] MEDS ORDERED: Iopamidol 755 Mg/ML 100 ML Bottle IVPUSH ONE (13:03)
[2023-07-06] MEDS ORDERED: Cyclobenzaprine 10 MG Tab PO ONE (15:19)
[2023-07-06] MEDS ORDERED: Ketorolac 30 MG/ML SDV IVPUSH ONE (15:19)
[2023-07-06 15:35] VITALS: BP 116/60; PULSE 76
== END 2023-07-06 15:51 | disposition home or self-care (01) ==
LOC: MW.ED 11:45
DX: R07.9 Chest pain, unspecified (principal); M54.6 Pain in thoracic spine; E66.9 Obesity, unspecified; Z86.16 Personal history of COVID-19; Z90.49 Acquired absence of other specified parts of digestive tract; Z79.82 Long term (current) use of aspirin; Z79.899 Other long term (current) drug therapy; Z88.0 Allergy status to penicillin; Z68.37 Body mass index [BMI] 37.0-37.9, adult
CPT/HCPCS: 36415; 71045; 71275; 80053; 83880; 84484; 85025; 85379; 85610; 85730; 93005; 96374; 96375; 96376; 99285; A9270; J1885; J2270; J2405; J3490; Q9967; 93010; 99284

== ENCOUNTER 2023-11-29 11:57 | Emergency (ER) | payer BC ==
[2023-11-29] MEDS: Meclizine 25 MG Tab PO STA (12:47)
[2023-11-29 14:10] LABS: BASOPHILS ABSOLUTE AUTO 0.05 K/uL (0.00-0.20); BASOPHILS PERCENT AUTO 0.4 % (0.0-1.0); EOSINOPHILS PERCENT AUTO 0.8 % (0.0-6.0); HEMATOCRIT 44.3 % (37.0-47.0); HEMOGLOBIN 14.8 g/dL (12.0-16.0); IMMATURE GRAN ABSOLUTE AUTO 0.04 K/uL (0.00-0.05); IMMATURE GRAN PERCENT AUTO 0.3 % (0.0-0.4); LYMPHOCYTES ABSOLUTE AUTO 2.72 K/uL (1.00-4.80); LYMPHOCYTES PERCENT AUTO 21.7 % (24.0-44.0); MEAN CORPUSCULAR HEMOGLOBIN 31.2 pg (28.0-32.0); MEAN CORPUSCULAR HGB CONC 33.4 g/dL (32.0-36.0); MEAN CORPUSCULAR VOLUME 93.5 fL (83.0-99.0); MEAN PLATELET VOLUME 8.6 fL (9.4-12.3); MONOCYTES ABSOLUTE AUTO 0.92 K/uL (0.00-0.80); MONOCYTES PERCENT AUTO 7.3 % (0.0-8.0); NEUTROPHILS ABSOLUTE AUTO 8.71 K/uL (1.80-7.70); NEUTROPHILS PERCENT AUTO 69.5 % (41.0-71.0); PLATELET COUNT,PLT 200 K/uL (150-400); RED BLOOD CELL COUNT 4.74 M/uL (4.10-5.30); WHITE BLOOD CELL COUNT,WBC 12.54 K/uL (3.9-11.3)
[2023-11-29 14:34] LABS: A/G RATIO 0.8 (0.9-1.6); ALBUMIN 3.2 g/dL (3.4-5.0); BILIRUBIN TOTAL 0.4 mg/dL (0.2-1.0); CALCIUM 8.8 mg/dL (8.5-10.1); CARBON DIOXIDE,CO2 29.7 mmol/L (21.0-32.0); CREATININE 0.9 mg/dL (0.6-1.0); EST CRCL DRUG DOSING (CG) 56.68 mL/min; POTASSIUM,K 3.9 mmol/L (3.5-5.1)
[2023-11-29] MEDS: Gadobenate Dimeglumine 529 MG/ML 20 ML SDV IVPUSH ONE (16:21)
[2023-11-29] MEDS: diphenhydrAMINE 50 MG/ML SDV IVPUSH STA (17:38)
[2023-11-29] MEDS: Sodium Chloride 0.9% 1,000 ML IV STA (17:38)
[2023-11-29] MEDS: Ketorolac 30 MG/ML SDV IVPUSH STA (17:38)
[2023-11-29] MEDS: Metoclopramide 10 MG/2 ML SDV IVPUSH STA (17:38)
[2023-11-29 18:17] VITALS: BP 128/69; PULSE 66
== END 2023-11-29 18:30 | disposition home or self-care (01) ==
LOC: MW.ED 11:57
DX: H74.92 Unspecified disorder of left middle ear and mastoid (principal); K21.9 Gastro-esophageal reflux disease without esophagitis; R42 Dizziness and giddiness; Z75.8 Other problems related to medical facilities and other health care; Z79.899 Other long term (current) drug therapy; Z88.0 Allergy status to penicillin; Z79.82 Long term (current) use of aspirin; Z86.16 Personal history of COVID-19; Z90.49 Acquired absence of other specified parts of digestive tract
CPT/HCPCS: 36415; 70553; 80053; 85025; 96361; 96374; 96375; 99284; A9270; A9577; J1200; J1885; J2765; J7030